=== PATIENT | male | born 1965 | race Caucasian/White ===

== ENCOUNTER 2018-11-27 09:39 | Inpatient (IN) | payer OTHER ==
[2018-11-27] VITALS (7 sets, daily range): BP systolic 100–118; BP diastolic 57–94
[~2018-11-27] VITALS: Ht 180.3 cm; Wt 105.0 kg
--- NOTE | ~2018-11-27 | EKG ---
[place], [place] ELECTROCARDIOGRAM REPORT NAME: RAMSES GARZA UNIT #: [id number] ROOM: 403 DOCTOR: STEPHIE DRAFT REPORT BIRTHDATE: [birth year] [facility] Test Date: 2018-11-28 Test Time: 14:55:48 Pat Name: RAMSES GARZA Department: Room: 403 2 Gender: M Lithopone Charger: : 1965 Requested By: LOTUS JC Order Number: [id number] Reading MD: Lotus Jc Measurements Intervals [place] Rate: 115 P: 74 [place]: 194 QRS: 59 QRSD: 91 T: 173 QT: 349 QTc: 483 Interpretive Statements Sinus tachycardia Abnormal R-wave progression, late transition Nonspecific T abnormalities, diffuse leads Borderline prolonged QT interval Baseline wander in lead(s) V6 Electronically Signed On 11-30-2018 8:55:47 PDT by Lotus Jc CM:EKGRPT:ELECTROCARDIOGRAM REPORT [id number] LOTUS CARD DRAFT REPORT LOTUS JC MD
--- NOTE | ~2018-11-27 | EKG ---
[place], [place] ELECTROCARDIOGRAM REPORT NAME: RAMSES GARZA UNIT #: [id number] ROOM: 403 DOCTOR: STEPHIE DRAFT REPORT BIRTHDATE: [birth year] [facility] Test Date: 2018-11-27 Test Time: 15:27:55 Pat Name: RAMSES GARZA Department: Room: 403 Gender: M Chartered Accountant: Anamaria Rodriguez : 1965 Requested By: JORI STEWART Order Number: [id number] Reading MD: Caitie Roy Measurements Intervals [place] Rate: 128 P: 96 [place]: 112 QRS: 63 QRSD: 91 T: 251 QT: 392 QTc: 572 Interpretive Statements aTRIAL fLUTTER WITH 2;1 BLOCK, rvr Abnormal R-wave progression, late transition Prolonged QT interval No previous ECG available for comparison Electronically Signed On 11-28-2018 12:44:12 PDT by Caitie Roy CM:EKGRPT:ELECTROCARDIOGRAM REPORT [id number] 1244 JORI CARD DRAFT REPORT JORI STEWART MD
--- NOTE | ~2018-11-27 | EKG ---
[place], [place] ELECTROCARDIOGRAM REPORT NAME: RAMSES GARZA UNIT #: [id number] ROOM: 403 DOCTOR: STEPHIE DRAFT REPORT BIRTHDATE: [birth year] [facility] Test Date: 2018-11-27 Test Time: 12:52:42 Pat Name: RAMSES GARZA Department: Room: 403 Gender: M Nuclear Waste Management Engineer: Anamaria Rodriguez : 1965 Requested By: JORI STEWART Order Number: [id number] Reading MD: Caitie Roy Measurements Intervals [place] Rate: 129 P: [place]: QRS: 60 QRSD: 89 T: 115 QT: 324 QTc: 475 Interpretive Statements Atrial Flitter with 2:1 block, RVR Nonspecific T abnrm, anterolateral leads ST elevation, consider inferior injury No previous ECG available for comparison Electronically Signed On 11-28-2018 12:25:57 PDT by Caitie Roy CM:EKGRPT:ELECTROCARDIOGRAM REPORT [id number] 1225 JORI CARD DRAFT REPORT JORI STEWART MD
--- NOTE | ~2018-11-27 | PR ---
[place], [place] PROGRESS NOTE NAME: RAMSES GARZA UNIT #: [id number] ROOM: 403 DOCTOR: HOSEA APPIAH,BOBBYFLOR BIRTHDATE: [birth year] DOS: 11/30/2018 CARDIOLOGY FOLLOWUP NOTE REASON FOR VISIT: Atrial flutter and congestive heart failure. SUBJECTIVE: The patient is feeling better, less short of breath. No PND, no orthopnea, no palpitations or dizziness. No nausea or vomiting, no bladder or bowel symptoms, no neurologic symptoms. He would like to go home today. REVIEW OF SYSTEMS: Review of the 8 systems negative except as mentioned above. VITAL SIGNS: Blood pressure 124/92, pulse 92, respirations 20. Weight 105 kg, BMI 32. RHYTHM STRIPS: The patient is in sinus rhythm, occasional sinus tachycardia. PHYSICAL EXAMINATION: GENERAL: Alert, comfortable, no acute distress. NECK: Supple, no distended neck veins, no carotid bruit. CHEST: Symmetrical, nontender. LUNGS: Mostly clear to auscultation bilaterally. HEART: Regular rhythm, no S3. Grade 1/6 systolic murmur. ABDOMEN: Obese, nontender. Bowel sounds normal. EXTREMITIES: Showed no edema. Distal pulses palpable. SKIN: Warm and dry. No cyanosis, no clubbing. RECTAL: Deferred. GENITOURINARY: Deferred. NEUROLOGIC: The patient is alert with no focal neurologic deficit. IMPRESSION AND PLAN: 1. New onset atrial flutter with rapid ventricular rate, status post CARLOS and DC cardioversion. The patient maintained in sinus rhythm. CHADS2-VASc score of 1. The patient was on Xarelto. The patient is aware of his risk and benefits of the Xarelto. 2. New onset cardiomyopathy, possible nonischemic cardiomyopathy of 30-35%. Continue his low dose beta blockers and MEMO inhibitors. 3. If the blood pressure tolerates, add Aldactone as outpatient. The patient declined LifeVest at this time and he wanted to think about it and aware of risk of sudden cardiac due to his left ventricular dysfunction. 4. Mild valvular heart disease. 5. Non-morbid obesity. RECOMMENDATIONS: 1. Continue current medication. The patient wanted to go home today. 2. Follow up office visit in 1-2 weeks at [facility] at [facility]. 3. No family at bedside at the time of examination. [place], [place] PROGRESS NOTE NAME: RAMSES GARZA UNIT #: [id number] ROOM: 403 DOCTOR: HOSEA APPIAH,LOTUS BIRTHDATE: [birth year] LOTUS JC MD CM:PNGUANAKO [id number] LOTUS JC MD 11/30/18 8485 interface
--- NOTE | ~2018-11-27 | EKG ---
[place], [place] ELECTROCARDIOGRAM REPORT NAME: RAMSES GARZA UNIT #: [id number] ROOM: 403 DOCTOR: STEPHIE DRAFT REPORT BIRTHDATE: [birth year] [facility] Test Date: 2018-11-27 Test Time: 09:39:44 Pat Name: RAMSES GARZA Department: Room: 403 Gender: M Mover Helper: : 1965 Requested By: JORI STEWART Order Number: [id number] Reading MD: Caitie Roy Measurements Intervals [place] Rate: 133 P: 253 [place]: 163 QRS: 47 QRSD: 81 T: 157 QT: 312 QTc: 465 Interpretive Statements Atrial flutter with 2:1 block, RVR Baseline wander in lead(s) II,III,aVF No previous ECG available for comparison Electronically Signed On 11-28-2018 12:24:17 PDT by Caitie Roy CM:EKGRPT:ELECTROCARDIOGRAM REPORT [id number] 1224 JORI CARD DRAFT REPORT JORI STEWART MD
--- NOTE | ~2018-11-27 | CON ---
[place], [place] REPORT OF CONSULTATION NAME: RAMSES GARZA UNIT #: [id number] ROOM: 403 DOCTOR: LOTUS JC MD BIRTHDATE: [birth year] DOS: 11/27/2018 CARDIOLOGY CONSULTATION REASON FOR CONSULTATION: Tachycardia. HISTORY OF PRESENT ILLNESS: The patient is a 53-year-old gentleman with a past medical history of asthma, was presented to Emergency Room with tachycardia and shortness of breath. He is having some progressive exertional dyspnea for the past 2-3 weeks, but no PND or orthopnea and he noted to have some fast heartbeats and was presented to the Emergency Room, but he specifically denies any chest pain on exertion or during his tachycardia. For his shortness of breath, he is taking surs-dxp-horhzxm Primatene for about 2 weeks. He did get some relief of his shortness of breath. He presented to the Emergency Room for his tachycardia. He was noted to be in tachycardia and given adenosine and Cardizem and was admitted to the hospital and Cardiology was consulted for further recommendations. At the time of examination, the patient is alert, comfortable. Denies any chest pain, shortness of breath. The patient is still tachycardic in the morning, rate 130, but he was asymptomatic. Denies any fever and chills. No cough, no hemoptysis. No nausea, vomiting, diarrhea. No bladder or bowel symptoms, no neurologic symptoms. No cough or hemoptysis, especially he denies any kind of chest pains at home except this mild shortness of breath on exertion for 2-3 weeks and past heartbeats. The patient denies any illicit drug use. He quit smoking about 6 years ago. He had no prior history of any cardiac disease. REVIEW OF SYSTEMS: Review of 10 systems negative except as mentioned above. PAST MEDICAL HISTORY: History of asthma. PAST SURGICAL HISTORY: History of occasional facial surgery, history of ankle surgery. SOCIAL HISTORY: The patient quit smoking in 2012, does not use illicit drugs, does not drink. FAMILY HISTORY: Father from suicide. Mother from complications from leukemia. ALLERGIES: No known drug allergies. HOME MEDICATIONS: Tylenol p.r.n. and also Primatene. PHYSICAL EXAMINATION: VITAL SIGNS: Blood pressure 117/57, pulse 130, respiratory rate was 18, weight 105 kg, BMI 32.3. GENERAL: Alert, comfortable, in no acute distress. HEENT: Pupils are round and equal. No jaundice. Tongue was moist and pharynx clear. [place], [place] REPORT OF CONSULTATION NAME: RAMSES GARZA UNIT #: [id number] ROOM: [facility] DOCTOR: LOTUS JC MD BIRTHDATE: [birth year] NECK: Supple, no distended neck veins, no carotid bruit. CHEST: Symmetrical, nontender. LUNGS: Diminished at right base. Fair air entry bilaterally. HEART: Mostly regular, grade 1/6 systolic murmur. No palpable thrills. ABDOMEN: Benign, nontender. Bowel sounds normal. EXTREMITIES: Showed no edema. Distal pulses palpable. SKIN: Warm and dry. No cyanosis, no clubbing. RECTAL: Deferred. GENITOURINARY: Deferred. NEUROLOGIC: The patient is alert with no focal neurologic deficit. MUSCULOSKELETAL: No joint tenderness or swelling. PSYCHIATRIC: The patient is alert with good mood and affect. REVIEW OF THE DIAGNOSTIC TESTS: EKG showed a narrow complex regular tachycardia appears to be atrial flutter with 2-1 block. One EKG showed SVT, atrial flutter versus atrial tachycardia with block. CBC, chemistry unremarkable. His BNP was 3814. TSH normal. Troponins are negative. Chest x-ray showed cardiomegaly. CT chest showed no pulmonary emboli. The patient had pleural effusions. IMPRESSION: 1. Paroxysmal supraventricular tachycardia, appears to be atrial flutter with a 2:1 block and rapid ventricular rate. 2. Acute heart failure, positive diastolic heart failure. 3. Exertional dyspnea. 4. Non-morbid obesity. RECOMMENDATIONS: Rate control with Cardizem and digoxin and also consider beta blockers. Give him Lasix 20 mg IV x 1 dose. Check 2D echo for LV function and valvular function also to rule out thrombus. Start him on Lovenox 1 mg/kg due to new onset atrial flutter. The patient remained in atrial flutter, I would recommend a CARLOS-guided DC cardioversion tomorrow. The patient converted to sinus rhythm overnight. I would do a stress test tomorrow to rule out any underlying ischemia. There was no family at bedside at the time of my examination. As per above recommendations for rate control, anticoagulation and further testing were discussed with the patient and all questions were answered. Risk factor modification for diet, exercise, as he tolerates and weight loss was discussed. Further recommendations based on his hospital course and above tests I mentioned. [place], [place] REPORT OF CONSULTATION NAME: RAMSES GARZA UNIT #: [id number] ROOM: [facility] DOCTOR: HOSEA APPIAH,LOTUS BIRTHDATE: [birth year] LOTUS JC MD CM:CONSTR:REPORT OF CONSULTATION 32 11/28/18 1437 interface
--- NOTE | ~2018-11-27 | PR ---
[place], [place] PROGRESS NOTE NAME: RAMSES GARZA [facility] #: [id number] UNIT #: [id number] ROOM: 403 DOCTOR: HOSEA APPIAH,BOBBYFLOR BIRTHDATE: [birth year] DOS: 11/28/2018 CARDIOLOGY PROGRESS NOTE REASON FOR VISIT: Atrial flutter and congestive heart failure. HISTORY OF PRESENT ILLNESS: The patient is feeling better. Denies any chest pain, shortness of breath. No palpitations or dizziness. Complaining of some chest heaviness on deep breathing. No PND, no orthopnea. No nausea, vomiting, diarrhea. No fever and chills. No musculoskeletal symptoms. No genitourinary symptoms. No neurologic symptoms. No musculoskeletal symptoms. No cough or hemoptysis. REVIEW OF SYSTEMS: Review of 10 systems negative except as mentioned above. PHYSICAL EXAMINATION: VITAL SIGNS: Blood pressure 121/92, pulse 130, respiratory rate 18, weight 105 kg, BMI 32. RHYTHM STRIPS: The patient in atrial flutter with 2:1 block, rates of 130. GENERAL: Alert, comfortable, in no acute distress. HEAD AND NECK: Supple, no distended neck veins, no carotid bruit. CHEST: Symmetrical, nontender. LUNGS: A few scattered rhonchi, slightly diminished at right base. HEART: Mostly regular, tachycardic, grade 1/6 systolic murmur. ABDOMEN: Benign, nontender. Bowel sounds normal. EXTREMITIES: Showed no edema. Distal pulses palpable. SKIN: Warm and dry. No cyanosis, no clubbing. RECTAL: Deferred. GENITOURINARY: Deferred. NEUROLOGIC: The patient is alert with no focal neurologic deficit. MUSCULOSKELETAL: No joint tenderness or swelling. PSYCHIATRIC: The patient is alert with good mood and affect. DIAGNOSTIC TESTS, LABORATORIES AND MEDICATIONS: Reviewed. IMPRESSION: 1. New onset atrial flutter with rapid ventricular rate. 2. Acute heart failure, possibly systolic versus diastolic, stable. 3. Heart murmur, possible mild mitral regurgitation. 4. Non-morbid obesity. 5. Pleural effusions RECOMMENDATIONS: 1. Continue current medications. 2. I would recommend a CARLOS-guided cardioversion due to his persistent atrial flutter with rapid ventricular rate. 3. Wean off and discontinue IV Cardizem. 4. Risks and complications of CARLOS cardioversion discussed and the patient agreed to proceed with CARLOS-guided cardioversion for the atrial flutter. 5. Start him on Xarelto 20 mg once daily and discontinue his Lovenox. [place], [place] PROGRESS NOTE NAME: RAMSES GARZA UNIT #: [id number] ROOM: 403 DOCTOR: HOSEA APPIAH,LOTUS BIRTHDATE: [birth year] 6. Based on his CARLOS findings and cardioversion, possible discharge tomorrow on oral anticoagulation and rate control medications. 7. No family at bedside at the time of examination. 8. Risk factor modification for diet, exercise, weight loss discussed. LOTUS JC MD CM:MARILYN 1528 1601 LOTUS JC MD 11/28/18 1602 interface
--- NOTE | ~2018-11-27 | O ---
[place], [place] OPERATIVE NOTE NAME: RAMSES GARZA UNIT #: [id number] ROOM: 403 DOCTOR: HOSEA APPIAH,LOTUS BIRTHDATE: [birth year] DOS: 11/28/2018 DC CARDIOVERSION PREOPERATIVE DIAGNOSIS: Atrial flutter with rapid ventricular rate. POSTOPERATIVE DIAGNOSIS: Atrial flutter with rapid ventricular rate. SEDATION: LMAC sedation. PROCEDURE: DC cardioversion x 1 using 100 joules of synchronized biphasic direct current. CLINICAL HISTORY: The patient is scheduled for CARLOS-guided cardioversion due to his persistent atrial flutter with rapid ventricular rate. Risks, complications and alternatives discussed. The patient was on Lovenox. The patient underwent brief CARLOS prior to cardioversion to rule out intracardiac thrombus. DESCRIPTION OF PROCEDURE: The patient was brought to the operative room. He was connected to pulse oximetry, blood pressure and heart rhythm monitor. After conscious sedation, the patient underwent a CARLOS, which showed no intracardiac thrombus. At that time, the patient received 100 joules of synchronized biphasic direct current via anterior and posterior cardioversion pads and converted to sinus rhythm. Post-procedure, the patient is alert and oriented with no focal neurologic deficit and vital signs are stable. CONCLUSION: Successful conversion of atrial flutter into normal sinus rhythm with single attempt of 100 joules of synchronized biphasic direct current. LOTUS JC MD CM:OPRECORD:OPERATIVE NOTE 1530 1624 LOTUS JC MD 11/28/18 1624 interface
--- NOTE | ~2018-11-27 | PR ---
[place], [place] PROGRESS NOTE NAME: RAMSES GARZA UNIT #: [id number] ROOM: 403 DOCTOR: HOSEA APPIAH,LOTUS BIRTHDATE: [birth year] DOS: 11/29/2018 CARDIOLOGY FOLLOWUP VISIT NOTE REASON FOR VISIT: Atrial flutter and congestive heart failure. HISTORY OF PRESENT ILLNESS: The patient is feeling better. No palpitations, but still is somewhat short of breath on activity. No PND, no orthopnea. No nausea, vomiting, diarrhea. No fever and chills. No genitourinary symptoms, no neurologic symptoms. REVIEW OF SYSTEMS: Review of 10 systems negative except as mentioned above. PHYSICAL EXAMINATION: VITAL SIGNS: Blood pressure 104/84, pulse 98, respiratory rate 16, weight 105 kg, BMI 32. RHYTHM STRIPS: The patient was in sinus rhythm. Occasional sinus bradycardia. GENERAL: Alert, comfortable, in no acute distress. NECK: Supple, no distended neck veins, no carotid bruit. CHEST: Symmetrical, nontender. LUNGS: Slightly diminished at right base. HEART: Regular rhythm, no S3. Grade 1/6 systolic murmur. ABDOMEN: Benign, nontender. EXTREMITIES: Showed trace edema. Distal pulses palpable. SKIN: Warm and dry. No cyanosis, no clubbing. RECTAL: Deferred. GENITOURINARY: Deferred. NEUROLOGIC: The patient is alert with no focal neurologic deficit. PSYCHIATRIC: The patient is alert with good mood and affect. MEDICATIONS AND LABORATORIES: Reviewed. IMPRESSION AND RECOMENDATIONS: 1. New-onset atrial flutter status post CARLOS and DC cardioversion. The patient maintained in sinus rhythm. Continue on Xarelto anticoagulation and metoprolol for rate control. 2. New-onset cardiomyopathy, possibly nonischemic cardiomyopathy, EF 35-40%. Continue beta blockers and low-dose MEMO inhibitors. If the blood pressure tolerates, we will add Aldactone as outpatient. Lasix 20 mg IV today. 3. Non-morbid obesity. The patient counseled for diet, exercise, weight loss, especially low-salt diet. The patient is stable and possible discharge on Saturday. The patient is agreeable for LifeVest due to risk of sudden cardiac . No family at bedside at the time of examination. Treatment plan was discussed with the patient and all questions were answered. [place], [place] PROGRESS NOTE NAME: RAMSES GARZA UNIT #: [id number] ROOM: 403 DOCTOR: LOTUS JC MD BIRTHDATE: [birth year] LOTUS JC MD CM:MARILYN [id number] [id number] LOTUS JC MD 11/30/18 1211 interface
--- NOTE | 2018-11-27 09:48 | NUR ---
PATIENT DENIES ANY WOUNDS AT THIS TIME A&OX4.
[2018-11-27 10:00] LABS: BASO # 0.1 10*3/uL (0.0-0.1); EOS # 0.4 10*3/uL (0.0-0.4); HEMATOCRIT 44.2 % (42.0-52.0); HEMOGLOBIN 14.6 g/dl (14.0-18.0); LYMPH # 1.6 10*3/uL (1.3-4.4); LYMPH % 20.1 % (27.0-41.0); MEAN CELL VOLUME 93.8 fl (80.0-94.0); MEAN PLATELET VOLUME 10.8 fl (9.6-12.3); MONO # 0.8 10*3/uL (0.1-1.0); MONO % 9.7 % (3.0-9.0); NEUT # 5.1 10*3/uL (2.3-7.9); PLATELET COUNT AUTOMATED 241 10*3/uL (130-400); RED BLOOD COUNT 4.71 10*6/uL (4.50-5.90); RED CELL DISTRI WIDTH 12.9 % (0-14.5)
[2018-11-27 10:11] LABS: ACT PARTIAL THROMBO TIME 26.3 SECONDS (20.0-32.1); INTERNATIONAL NORM RATIO 1.2 (2.0-3.5)
[2018-11-27 10:21] LABS: ALBUMIN 3.4 gm/dl (3.1-4.5); ALKALINE PHOSPHATASE 72 U/L (45-117); BUN 9 mg/dl (7-24); CHLORIDE 110 mmol/L (98-107); CREATININE 1.01 mg/dL (0.70-1.30); SGOT/AST 19 IU/L (3-35); SGPT/ALT 22 U/L (12-78); SODIUM 140 mmol/L (136-145); TOTAL PROTEIN 6.6 gm/dL (6.4-8.2)
[2018-11-27 10:27] LABS: TROPONIN I < 0.015 ng/ml (<0.045)
--- NOTE | 2018-11-27 11:21 | NUR ---
PATIENT GIVEN INTIAL 6MG DOSE OF ADENOSINE. PATIENT TOLERATED WELL. NO CHANGES IN HEART RHYTHM. CRASH CART AND DR STEWART AT BEDSIDE.
--- NOTE | 2018-11-27 11:50 | NUR ---
A 53, admitted to , under the services of VÍCTOR Lindsey DO with a diagnosis of TACHYCARDIA AND SHORTNESS OF BREATH. Chief complaint is FEELS LIKE HE CANT TAKE A DEEP BREATH. Patient arrived via stretcher from ER. Monitor applied. Initial assessment completed. Vital signs taken and recorded. See assessment for past medical history, medications and allergies. Patient and/or family oriented to unit. [facility] policy reviewed. SABA CHAMBERLAIN
[2018-11-27] MEDS ORDERED: PRIMATENE ASTH1 EACH PO (11:56)
[2018-11-27] MEDS ORDERED: TYLENOL325 M1 PO (12:03)
[2018-11-27 12:19] LABS: BILIRUBIN NEGATIVE (NEGATIVE); BLOOD NEGATIVE (NEGATIVE); CLARITY SL CLOUDY (CLEAR); COLOR YELLOW (YELLOW); GLUCOSE NEGATIVE (NEGATIVE); KETONE NEGATIVE (NEGATIVE); LEUKO ESTERASE NEGATIVE (NEGATIVE); NITRITE NEGATIVE (NEGATIVE); PH 6.5 (5.0-9.0); SPECIFIC GRAVITY <= 1.005 (1.005-1.030); UROBILINOGEN 0.2 E.U./dl (0.2-1.0)
[2018-11-27 12:27] LABS: BACTERIA TRACE; RBC 0-2 rbc/hpf (0-2); WBC 0-2 wbc/hpf (0-5)
--- NOTE | 2018-11-27 12:27 | NUR ---
Notified Dr. Irene that CTA was ordered routine from ER and has not yet been done. States we can call and ask them to do stat. I spoke with Ildefonso with CT and notified her, states we can cancel and reorder but it won't matter. States she has 7 pt ahead of this one.
--- NOTE | 2018-11-27 15:44 | NUR ---
Cardizem 5 mg iv given per order.
--- NOTE | 2018-11-27 16:12 | NUR ---
PT hr remains 115-128 after cardizem.
--- NOTE | 2018-11-27 16:58 | NUR ---
HR did not respond to digoxin iv HR still 120-130's. Dr. Roy in and spoke with pt and examined pt. Plan for cardizem gtt, diuretic x1 and stress test in am.
--- NOTE | 2018-11-27 17:09 | NUR ---
Cardizem gtt started at this time at 5 mg/hr, pt given 15 mg bolus per order.
--- NOTE | 2018-11-27 17:20 | NUR ---
IV started left forearm with #20 angiocath after 2 attempts. The IV site was prepped with Chloraprep. Heparin lock attached. Second site for additional IV's due to cardizem gtt to right arm iv. Sterile dressing applied. Patient tolerated precedure well. Procedure performed according to [facility] policy & procedure. SABA CHAMBERLAIN
--- NOTE | 2018-11-27 18:20 | NUR ---
Pt up ambulatory to bathroom. States he voided 1500 cc of urine after lasix. HR 130's with activity. After resting pt recovered to 90-100. Bp was 100/70 via manual cuff to left arm. Cardizem gtt remains at 5 mg/hr.
--- NOTE | 2018-11-27 20:31 | NUR ---
RESTING IN BED WATCHING TV. CARDIZEM CONT AT 5MG. NO DISTRESS NOTED. NO C/O'S PAIN OR DISCOMFORT VOICED.
--- NOTE | 2018-11-27 22:08 | NUR ---
RESTING IN BED WITH EYES CLOSED. APPEARS TO BE SLEEPING.
[2018-11-28] VITALS (13 sets, daily range): BP systolic 106–144; BP diastolic 67–102
--- NOTE | 2018-11-28 00:17 | NUR ---
REMAINS SLEEPING WIHTOUT DISTRESS. CARDIZEM GTT CONT AT 5MG AND MONITOR REMAINS A FLUTTER IN THE 80'S. NPO FOR POSSIBLE STRESS TEST IN AM.
--- NOTE | 2018-11-28 02:19 | NUR ---
HR IN THE 70'S AND A FLUTTER. CARDIZEM TITRATED TO 2.5MG.
--- NOTE | 2018-11-28 04:08 | NUR ---
0405 NORCO 1 PO GIVEN FOR C/O'S H/A. RATES A "6". WILL MONITOR.
--- NOTE | 2018-11-28 05:25 | NUR ---
PAIN MED EFFECTIVE. RESTING IN BED WITH EYES CLOSED.
--- NOTE | 2018-11-28 06:07 | NUR ---
REMAINS SLEEPING WITHOUT DISTRESS. CARDIZEM GTT CONT @ 2.5MG. CONDITION GUARDED.
[2018-11-28 07:22] LABS: BASO # 0.1 10*3/uL (0.0-0.1); BASO % 1.4 % (0.0-1.0); EOS # 0.5 10*3/uL (0.0-0.4); EOS % 7.4 % (1.0-4.0); HEMATOCRIT 44.3 % (42.0-52.0); HEMOGLOBIN 14.1 g/dl (14.0-18.0); LYMPH # 1.6 10*3/uL (1.3-4.4); LYMPH % 25.6 % (27.0-41.0); MEAN CELL VOLUME 95.9 fl (80.0-94.0); MEAN CORPUSCULAR HGB 30.5 pg (27.0-31.0); MEAN CORPUSCULAR HGB CONC 31.8 g/dl (33.0-37.0); MEAN PLATELET VOLUME 11.2 fl (9.6-12.3); MONO # 0.6 10*3/uL (0.1-1.0); MONO % 9.8 % (3.0-9.0); NEUT # 3.5 10*3/uL (2.3-7.9); NEUT % 55.6 % (47.0-73.0); PLATELET COUNT AUTOMATED 219 10*3/uL (130-400); RED BLOOD COUNT 4.62 10*6/uL (4.50-5.90); RED CELL DISTRI WIDTH 13.2 % (0-14.5); WHITE BLOOD COUNT 6.3 10*3/uL (4.8-10.8)
[2018-11-28 07:49] LABS: BUN 10 mg/dl (7-24); CHLORIDE 108 mmol/L (98-107); CHOLESTEROL 120 mg/dL (<200); CREATININE 0.88 mg/dL (0.70-1.30); POTASSIUM 3.4 mmol/L (3.5-5.1); SODIUM 142 mmol/L (136-145); TRIGLYCERIDES 77 mg/dl (<150); VLDL CHOLESTEROL 15 mg/dL (6-40)
[2018-11-28 07:51] LABS: HDL CHOLESTEROL 35 mg/dl (40-60); LDL CHOLESTEROL 70 mg/dL (9-159)
--- NOTE | 2018-11-28 15:35 | NUR ---
Leather Scrubber in to talk to patient. Patient states lives at home with alone. There are few steps in the home. Physician: francisca willoughby Pharmacy: mail Home health services: none Patient's level of ADLs: INDEPENDENT Patient has working utilities: all working DME: none Follow-up physician's appointment after d/c: will be made by hospitalist nurse director upon discharge Does patient want to access PORTAL?: no Discharge plan discussed with patient, patient lives at home, states he is independent in adls and ambulation, he states he will be returning home when able and denies any home needsy. DIETER IQBAL
--- NOTE | 2018-11-28 20:14 | NUR ---
PRN NORCO GIVEN FOR PT COMPLAINTS OF 5/10 HEADACHE. CALL LIGHT WITHIN REACH, WILL MONITOR
--- NOTE | 2018-11-28 21:30 | NUR ---
PRN MEDICATION EFFECTIVE, PER PT
[2018-11-29] VITALS (7 sets, daily range): BP systolic 104–127; BP diastolic 66–93
--- NOTE | 2018-11-29 02:50 | NUR ---
SPOKE WITH DR. POTTS AT THIS TIME. PATIENT COMPLAINING OF WHEEZING. WHEEZING NOTED T/O LUNGS, NOT NOTED EARLIER. PATIENT STATED THAT THIS WAS ORIGINALLY WHY HE CAME INTO THE ER. DR. POTTS STATED HE WOULD ORDER SOMETHING
--- NOTE | 2018-11-29 03:18 | NUR ---
PRN NORCO GIVEN FOR PT COMPLAINTS OF 4/10 HEADACHE. CALL LIGHT NATASHA REBOLLEDO, WILL MONITOR
--- NOTE | 2018-11-29 03:20 | NUR ---
PT STATES BREATHING TREATMENT VERY EFFECTIVE. PRN NORCO GIVEN WELL FOR MILD HEADACHE OF 5/10. CALL LIGHT WITHIN REACH, WILL MONITOR
--- NOTE | 2018-11-29 04:30 | NUR ---
PRN MEDICATION APPEARS EFFECTIVE, PT SLEEPING
--- NOTE | 2018-11-29 06:22 | NUR ---
PRN MOM FOR PT COMPLAINTS OF HARD BOWEL MOVEMENTS.
[2018-11-29 06:46] LABS: BASO # 0.1 10*3/uL (0.0-0.1); BASO % 1.5 % (0.0-1.0); EOS # 0.4 10*3/uL (0.0-0.4); EOS % 6.6 % (1.0-4.0); HEMATOCRIT 42.7 % (42.0-52.0); HEMOGLOBIN 13.6 g/dl (14.0-18.0); LYMPH # 1.6 10*3/uL (1.3-4.4); LYMPH % 23.6 % (27.0-41.0); MEAN CORPUSCULAR HGB 30.9 pg (27.0-31.0); MEAN CORPUSCULAR HGB CONC 31.9 g/dl (33.0-37.0); MEAN PLATELET VOLUME 11.6 fl (9.6-12.3); MONO # 0.6 10*3/uL (0.1-1.0); MONO % 8.8 % (3.0-9.0); NEUT # 3.9 10*3/uL (2.3-7.9); NEUT % 59.3 % (47.0-73.0); PLATELET COUNT AUTOMATED 226 10*3/uL (130-400); RED CELL DISTRI WIDTH 12.8 % (0-14.5); WHITE BLOOD COUNT 6.6 10*3/uL (4.8-10.8)
[2018-11-29 07:14] LABS: ALBUMIN 3.1 gm/dl (3.1-4.5); BUN 15 mg/dl (7-24); CHLORIDE 110 mmol/L (98-107); POTASSIUM 4.1 mmol/L (3.5-5.1); SODIUM 141 mmol/L (136-145)
[2018-11-29 07:28] LABS: ALKALINE PHOSPHATASE 67 U/L (45-117); CREATININE 0.98 mg/dL (0.70-1.30); PHOSPHOROUS 4.6 mg/dL (2.5-4.9); SGOT/AST 13 IU/L (3-35); SGPT/ALT 19 U/L (12-78); TOTAL PROTEIN 6.2 gm/dL (6.4-8.2)
--- NOTE | 2018-11-29 07:34 | NUR ---
NORCO GIVEN FOR C/O GENERALIZED DISCOMFORT. WILL MONITOR.
--- NOTE | 2018-11-29 08:40 | NUR ---
DERECK EFFECTIVE PER PT.
--- NOTE | 2018-11-29 14:01 | NUR ---
NORCO GIVEN FOR C/O GEN. DISCOMFORT. WILL MONITOR.
--- NOTE | 2018-11-29 15:00 | NUR ---
DERECK EFFECTIVE PER PT.
--- NOTE | 2018-11-29 17:59 | NUR ---
NORCO GIVEN FOR C/O HEADACHE. RATES 5/10 ON PAIN SCALE. WILL MONITOR.
--- NOTE | 2018-11-29 19:05 | NUR ---
NORCO HELPING PER PT. WILL CONTINUE TO MONITOR.
--- NOTE | 2018-11-29 22:00 | NUR ---
SPOKE WITH DR. ROWE AT THIS TIME, PATIENT REQUESTING BREATHING TREATMENT, NOTIFIED HER THAT THEY ARE ONLY GIVING THE PATIENT ONE TIME DOSES AT A TIME TO WATCH HIS HEART RATE SINCE HE WAS CARDIOVERTED, BUT THEY MAKE HIM FEEL BETTER. ONE TIME DOSE ORDER RECIEVED
--- NOTE | 2018-11-29 22:09 | NUR ---
PRN NORCO GIVEN FOR PT COMPLAINTS OF A HEADACHE RATING IT 4/10. CALL LIGHT WITHIN REACH, WILL ANA
--- NOTE | 2018-11-29 23:00 | NUR ---
PRN MEDICATION APPEARS EFFECTIVE, PT SLEEPING
[2018-11-30] VITALS: BP 117/92
--- NOTE | 2018-11-30 05:16 | NUR ---
24 HR chart check completed.
--- NOTE | 2018-11-30 06:11 | NUR ---
PRN NORCO GIVEN FOR PT COMPLAINTS OF A HEADACHE RATING IT 5/10. CALL LIGHT WTHIN REACH, WILL MONITOR
[2018-11-30 08:00] VITALS: BP 124/90; BP 135/99
[2018-11-30 08:07] LABS: BUN 15 mg/dl (7-24); CHLORIDE 104 mmol/L (98-107); CREATININE 0.98 mg/dL (0.70-1.30); PHOSPHOROUS 3.5 mg/dL (2.5-4.9); POTASSIUM 4.3 mmol/L (3.5-5.1); SODIUM 135 mmol/L (136-145)
[2018-11-30 12:00] VITALS: BP 121/93
[2018-11-30] MEDS ORDERED: XARE20MG PO (13:55)
[2018-11-30] MEDS ORDERED: LISINOPRIL2.5 MG PO (13:55)
[2018-11-30] MEDS ORDERED: METOPROLOL SUCC25 M2 PO (13:55)
--- NOTE | 2018-11-30 14:14 | NUR ---
PT MEDICATED WITH PO NORCO AT THIS TIME PER ORDER FOR COMPLAINTS OF PAIN IN HEAD AND NECK. WILL MONITOR FOR EFFECTIVENESS.
--- NOTE | 2018-11-30 15:50 | NUR ---
Discharge instructions reviewed with patient/family. Patient receptive and verbalizes understanding. Follow-up care arranged. Written instructions given to patient/family. [place] DISCONTINUED. PATIENT'S LEGISLATIVE DIRECTOR REMOVED. PRESCRIPTIONS GIVEN. CONTACT INFO GIVEN TO [facility] FOR SET UP TOMORROW. PT AMBULATORY OFF FLOOR. ALIA CAPONE
== END 2018-11-30 15:50 | disposition home or self-care (01) | DRG 292 ==
LOC: ED 09:39 → EDHOLD 11:19 → 4E 11:19
PROVIDERS: Emergency Medicine; Internal Medicine; ADMIT Internal Medicine
PROC: 5A2204Z Restoration of Cardiac Rhythm, Single (ICD-10-PCS; principal; 2018-11-28)
DX: I50.21 Acute systolic (congestive) heart failure (principal); I48.92 Unspecified atrial flutter; I47.1 Supraventricular tachycardia; I42.9 Cardiomyopathy, unspecified; R73.9 Hyperglycemia, unspecified; E66.8 Other obesity; R01.1 Cardiac murmur, unspecified; E87.6 Hypokalemia; R07.9 Chest pain, unspecified; I51.7 Cardiomegaly; J45.909 Unspecified asthma, uncomplicated; Z68.32 Body mass index [BMI] 32.0-32.9, adult; Z87.891 Personal history of nicotine dependence; Z81.8 Family history of other mental and behavioral disorders; Z80.6 Family history of leukemia; Z71.3 Dietary counseling and surveillance

== ENCOUNTER 2019-12-22 14:27 | Inpatient (IN) | payer OTHER ==
[2019-12-22] VITALS (7 sets, daily range): BP systolic 60–95; BP diastolic 40–64
[~2019-12-22] VITALS: Ht 180.3 cm; Wt 118.4 kg
[~2019-12-22 14:27] MED LIST: LISINOPRIL2.5 MG PO; METOPROLOL SUCC25 M2 PO; PRIMATENE ASTH1 EACH PO; TYLENOL325 M1 PO; XARE20MG PO
[2019-12-22 15:06] LABS: BASO # 0.1 10*3/uL (0.0-0.1); EOS # 0.4 10*3/uL (0.0-0.4); HEMATOCRIT 41.5 % (42.0-52.0); LYMPH # 3.4 10*3/uL (1.3-4.4); LYMPH % 37.8 % (27.0-41.0); MEAN CELL VOLUME 93.7 fl (80.0-94.0); MEAN CORPUSCULAR HGB 30.9 pg (27.0-31.0); MEAN PLATELET VOLUME 9.9 fl (9.6-12.3); MONO % 10.5 % (3.0-9.0); NEUT # 4.2 10*3/uL (2.3-7.9); NEUT % 46.3 % (47.0-73.0); PLATELET COUNT AUTOMATED 310 10*3/uL (130-400); RED BLOOD COUNT 4.43 10*6/uL (4.50-5.90); RED CELL DISTRI WIDTH 12.8 % (0-14.5); WHITE BLOOD COUNT 9.1 10*3/uL (4.8-10.8)
[2019-12-22 15:17] LABS: ACT PARTIAL THROMBO TIME 29.5 SECONDS (20.0-32.1)
[2019-12-22 15:21] LABS: ALBUMIN 3.4 gm/dl (3.1-4.5); ALKALINE PHOSPHATASE 66 U/L (45-117); BUN 19 mg/dl (7-24); CHLORIDE 110 mmol/L (98-107); CREATININE 1.77 mg/dL (0.70-1.30); LIPASE 130 U/L (73-393); SGOT/AST 16 IU/L (3-35); SGPT/ALT 28 U/L (12-78); SODIUM 136 mmol/L (136-145); TOTAL PROTEIN 7.5 gm/dL (6.4-8.2)
[2019-12-22 15:27] LABS: TROPONIN I < 0.015 ng/ml (<0.045)
[2019-12-22 15:32] LABS: DIGOXIN 0.44 ng/ml (0.8-2.0)
[2019-12-22 18:02] LABS: URINE AMPHETAMINES < 1000 (1000ng/ml); URINE BARBITURATES < 200 (200ng/ml); URINE BENZODIAZEPINES < 200 (200ng/ml); URINE CANNABINOIDS (THC) < 50 (50ng/ml); URINE COCAINE < 300 (300ng/ml); URINE METHADONE < 300 (300ng/ml); URINE OPIATES < 300 (300ng/ml)
[2019-12-22 18:08] LABS: URINE PHENCYCLIDINE < 25 (25ng/ml)
[2019-12-22 18:12] LABS: CLARITY CLEAR (CLEAR); COLOR YELLOW (YELLOW); GLUCOSE NEGATIVE (NEGATIVE)
[2019-12-22 18:13] LABS: BACTERIA TRACE; BILIRUBIN NEGATIVE (NEGATIVE); BLOOD NEGATIVE (NEGATIVE); EPITHELIAL CELLS 0-2; HYALINE CAST 16-20; KETONE NEGATIVE (NEGATIVE); LEUKO ESTERASE NEGATIVE (NEGATIVE); MUCOUS 2+; NITRITE NEGATIVE (NEGATIVE); SPECIFIC GRAVITY 1.015 (1.005-1.030); UROBILINOGEN 0.2 E.U./dl (0.2-1.0)
[2019-12-23 00:20] VITALS: BP 109/75
[2019-12-23] MEDS ORDERED: ELIQUIS5 M1 PO (00:34)
[2019-12-23] MEDS ORDERED: ALDACTONE25 MG PO (00:35)
[2019-12-23] MEDS ORDERED: METOPROLOL SUC200 M1 PO (00:35)
[2019-12-23] MEDS ORDERED: FUROSEMIDE40 MG PO (00:36)
[2019-12-23] MEDS ORDERED: DIGOXIN125 MCG PO (00:36)
[2019-12-23] MEDS ORDERED: ESCITALOPRAM OX10 MG PO (00:37)
[2019-12-23] MEDS ORDERED: LOSARTAN POTASS25 M1 PO (00:38)
[2019-12-23] MEDS ORDERED: HYDROXYZINE HCL25 MG PO (00:39)
[2019-12-23 07:02] LABS: ACT PARTIAL THROMBO TIME 29.3 SECONDS (20.0-32.1)
[2019-12-23 07:10] LABS: BASO # 0.1 10*3/uL (0.0-0.1); BASO % 0.8 % (0.0-1.0); EOS # 0.2 10*3/uL (0.0-0.4); EOS % 3.7 % (1.0-4.0); HEMATOCRIT 38.1 % (42.0-52.0); LYMPH # 1.8 10*3/uL (1.3-4.4); LYMPH % 27.9 % (27.0-41.0); MEAN CELL VOLUME 92.5 fl (80.0-94.0); MEAN CORPUSCULAR HGB 31.1 pg (27.0-31.0); MEAN CORPUSCULAR HGB CONC 33.6 g/dl (33.0-37.0); MEAN PLATELET VOLUME 9.9 fl (9.6-12.3); MONO # 0.6 10*3/uL (0.1-1.0); MONO % 9.4 % (3.0-9.0); NEUT # 3.8 10*3/uL (2.3-7.9); PLATELET COUNT AUTOMATED 228 10*3/uL (130-400); RED BLOOD COUNT 4.12 10*6/uL (4.50-5.90); RED CELL DISTRI WIDTH 12.6 % (0-14.5); WHITE BLOOD COUNT 6.5 10*3/uL (4.8-10.8)
[2019-12-23 07:14] LABS: BUN 15 mg/dl (7-24); CHLORIDE 109 mmol/L (98-107); CHOLESTEROL 179 mg/dL (<200); FREE T4 0.83 ng/dl (0.76-1.46); POTASSIUM 3.6 mmol/L (3.5-5.1); SGOT/AST 14 IU/L (3-35); SGPT/ALT 22 U/L (12-78); SODIUM 142 mmol/L (136-145); TOTAL PROTEIN 6.8 gm/dL (6.4-8.2); TRIGLYCERIDES 311 mg/dl (<150); VLDL CHOLESTEROL 62 mg/dL (6-40)
[2019-12-23 07:19] LABS: ALKALINE PHOSPHATASE 60 U/L (45-117); HDL CHOLESTEROL 40 mg/dl (40-60); LDL CHOLESTEROL 77 mg/dL (9-159); THYROID STIM HORMONE (HS) 0.546 uIU/ml (0.358-4.75)
[2019-12-23 08:00] VITALS: BP 118/78
[2019-12-23 08:32] LABS: VITAMIN D, 25-HYDROXY 14.9 ng/mL (30-100)
[2019-12-23 12:00] VITALS: BP 117/77
[2019-12-23 16:00] VITALS: BP 123/88
[2019-12-23 20:00] VITALS: BP 106/53
[2019-12-24] VITALS (9 sets, daily range): BP systolic 98–148; BP diastolic 62–107
[2019-12-24 06:35] LABS: BASO # 0.1 10*3/uL (0.0-0.1); BASO % 0.9 % (0.0-1.0); EOS # 0.2 10*3/uL (0.0-0.4); EOS % 3.6 % (1.0-4.0); HEMATOCRIT 44.2 % (42.0-52.0); LYMPH # 1.8 10*3/uL (1.3-4.4); LYMPH % 28.3 % (27.0-41.0); MEAN CELL VOLUME 92.5 fl (80.0-94.0); MEAN CORPUSCULAR HGB 30.8 pg (27.0-31.0); MEAN CORPUSCULAR HGB CONC 33.3 g/dl (33.0-37.0); MEAN PLATELET VOLUME 9.8 fl (9.6-12.3); MONO # 0.5 10*3/uL (0.1-1.0); MONO % 8.4 % (3.0-9.0); NEUT # 3.7 10*3/uL (2.3-7.9); NEUT % 58.5 % (47.0-73.0); PLATELET COUNT AUTOMATED 234 10*3/uL (130-400); RED BLOOD COUNT 4.78 10*6/uL (4.50-5.90); RED CELL DISTRI WIDTH 12.3 % (0-14.5); WHITE BLOOD COUNT 6.3 10*3/uL (4.8-10.8)
[2019-12-24 06:54] LABS: BUN 12 mg/dl (7-24); CHLORIDE 106 mmol/L (98-107); POTASSIUM 4.2 mmol/L (3.5-5.1); SODIUM 139 mmol/L (136-145)
[2019-12-24] MEDS ORDERED: METOPROLOL SUCC25 M2 PO (16:01)
[2019-12-24] MEDS ORDERED: ELIQUIS5 M1 PO (16:01)
[2019-12-24] MEDS ORDERED: VITAMIN D3125 MC1 PO (16:01)
[2019-12-24] MEDS ORDERED: FUROSEMIDE20 M1 PO (16:01)
== END 2019-12-24 17:15 | disposition home or self-care (01) | DRG 775 ==
LOC: ED 14:27 → EDHOLD 15:52 → 4E 15:52
PROVIDERS: Emergency Medicine; Hospitalist; ADMIT Internal Medicine
PROC: 5A2204Z Restoration of Cardiac Rhythm, Single (ICD-10-PCS; principal; 2019-12-24)
DX: F10.229 Alcohol dependence with intoxication, unspecified (principal); I95.9 Hypotension, unspecified; N17.0 Acute kidney failure with tubular necrosis; E86.0 Dehydration; I48.92 Unspecified atrial flutter; E83.39 Other disorders of phosphorus metabolism; E87.2 Acidosis; I11.0 Hypertensive heart disease with heart failure; I50.43 Acute on chronic combined systolic (congestive) and diastolic (congestive) heart failure; F10.239 Alcohol dependence with withdrawal, unspecified; Y90.9 Presence of alcohol in blood, level not specified; D64.9 Anemia, unspecified; J45.40 Moderate persistent asthma, uncomplicated; E87.8 Other disorders of electrolyte and fluid balance, not elsewhere classified; E66.9 Obesity, unspecified; I42.9 Cardiomyopathy, unspecified; I08.1 Rheumatic disorders of both mitral and tricuspid valves; Z87.891 Personal history of nicotine dependence; Z79.01 Long term (current) use of anticoagulants; Z79.899 Other long term (current) drug therapy; Z80.6 Family history of leukemia; Z68.36 Body mass index [BMI] 36.0-36.9, adult